=== PATIENT | female | born 1945 | race Caucasian/White ===

== ENCOUNTER 2023-04-11 12:35 | Emergency (ER) | payer OTHER, MEDICARE ==
[2023-04-11] MEDS ORDERED: ONDANSETRON 4 MG/2 ML VIAL ONE (13:09)
[2023-04-11] MEDS ORDERED: MORPHINE 2 MG/ML SYR ONE (13:09)
[2023-04-11] MEDS ORDERED: NA CHLORIDE 0.9% 1,000 ML ONE (13:09)
[2023-04-11] MEDS ORDERED: NA CHLORIDE 0.9% 500 ML ONE (13:10)
[2023-04-11 13:12] LABS: Absolute Lymphocytes (CBC) 0.6 K/uL (0.7-4.9); Hematocrit 39.9 % (36.0-45.0); Lymphocytes % 10.9 % (15.3-44.8); MCV 94.2 fL (80-100); MPV 12.5 fL (7.6-11.3); RBC Red Blood Cell Count 4.23 M/uL (3.86-4.86)
[2023-04-11 13:26] LABS: Bilirubin Total 0.8 mg/dL (0.2-1.0); Potassium 4.5 mEq/L (3.5-5.1); Protein, Total 6.7 g/dL (6.4-8.2)
[2023-04-11 13:54] LABS: Blood Morphology Comment NOT SEEN (NOT SEEN); Platelet Estimate ADEQ; White Blood Cell Scan OK (OK)
--- NOTE | 2023-04-11 14:13 | RAD REPORT ---
EXAM DESCRIPTION: CT - Abdomen Pelvis Wo Contrast - 04/11/2023 1:54 pm CLINICAL HISTORY: Abdominal pain. hX OF BOWEL OBSTRUCTION;Abd pain COMPARISON: <Comparisons> TECHNIQUE: CT imaging of the abdomen and pelvis was performed without contrast. Solid organ, bowel a nd vascular assessment is limited due to lack of IV and oral contrast. All CT scans are performed using dose optimization technique as appropriate and may include automated exposure control or mA/KV adjustment according to patient size. FINDINGS: Fibrotic changes are present in the lung bases. The liver, spleen, pancreas, adrenal glands and kidneys are within normal limits for a limited non-co ntrast examination. Postsurgical changes are present involving the stomach and small intestine. Focally dilated small bow el loops filled with liquid stool measure up to 4 cm. The cecum and colon also significantly filled w ith stool. Bowel obstruction is not seen. No free air. Nonvisualized appendix. Moderate lumbar degenerative changes. IMPRESSION: Solid and liquid stool retention is seen in the small bowel and colon without definitive bowel obstruction. A limited non-contrast examination was performed as detailed.
--- NOTE | 2023-04-11 14:43 | EDPHYS ---
Physician Documentation [facility] Name: Angie Daniel Age: 77 yrs Sex: Female : 1945 Arrival Date: 04/11/2023 Time: 12:35 Bed 17 Private MD: Tiki James ED Physician Rick Ball HPI: 04/11 15:24 This 77 yrs old Female presents to ER via Ambulatory with complaints of Abdominal Pain. kdr 15:24 Patient began to have abdominal pain about 3 days ago. She feels that she may be having kdr recurrence of a prior bowel obstruction. She was seen here at the beginning of February for similar pain. She was subsequently admitted with a small bowel obstruction. She did not require further intervention beyond the normal hydration and bowel rest. She subsequently was discharged in good condition has been fine until the last 3 days. She denies any other significant associated findings or complaints or review of systems. Onset: The symptoms/episode began/occurred gradually, 3 day(s) ago. Severity of symptoms: At their worst the symptoms were mild. The patient has experienced a previous episode, last month. The patient has been recently seen by a physician:. Historical: - Allergies: 12:47 Codeine; ll1 12:47 PENICILLINS; ll1 12:47 tramadol; ll1 - PMHx: 12:47 Hypercholesterolemia; atrial flutter; Hypertensive disorder; Hypothyroidism; ll1 - PSHx: 12:47 Gastric Bypass; Cholecystectomy; hernia; upper bowel obstruction; ll1 - Immunization history:: Client reports receiving the 2nd dose of the Covid vaccine. - Social history:: Smoking status: Patient denies any tobacco usage or history of. ROS: 15:24 Constitutional: Negative for fever, chills, and weight loss, Eyes: Negative for injury, kdr pain, redness, and discharge, ENT: Negative for injury, pain, and discharge, Neck: Negative for injury, pain, and swelling, Cardiovascular: Negative for chest pain, palpitations, and edema, Respiratory: Negative for shortness of breath, cough, wheezing, and pleuritic chest pain, Back: Negative for injury and pain, : Negative for injury, bleeding, discharge, and swelling, MS/Extremity: Negative for injury and deformity, Skin: Negative for injury, rash, and discoloration, Neuro: Negative for headache, weakness, numbness, tingling, and seizure activity. Psych: Negative for depression, anxiety, suicide ideation, homicidal ideation, and hallucinations, Allergy/Immunology: Negative for hives, rash, and allergies, Endocrine: Negative for neck swelling, polydipsia, polyuria, polyphagia, and marked weight changes, Hematologic/Lymphatic: Negative for swollen nodes, abnormal bleeding, and unusual bruising. 15:24 Abdomen/GI: Positive for abdominal pain, nausea, Last bowel movement was 1030 today. She had 2 bowel movements yesterday. She continues to have occasional flatus per rectum. Exam: 15:24 Constitutional: This is a well developed, well nourished patient who is awake, alert, kdr and in no acute distress. Head/Face: Normocephalic, atraumatic. Eyes: Pupils equal round and reactive to light, extra-ocular motions intact. Lids and lashes normal. Conjunctiva and sclera are non-icteric and not injected. Cornea within normal limits. Periorbital areas with no swelling, redness, or edema. Neck: Trachea midline, no thyromegaly or masses palpated, and no cervical lymphadenopathy. Supple, full range of motion without nuchal rigidity, or vertebral point tenderness. No Meningismus. Chest/axilla: Normal chest wall appearance and motion. Nontender with no deformity. No lesions are appreciated. Cardiovascular: Regular rate and rhythm with a normal S1 and S2. No gallops, murmurs, or rubs. Normal PMI, no JVD. No pulse deficits. Respiratory: Lungs have equal breath sounds bilaterally, clear to auscultation and percussion. No rales, rhonchi or wheezes noted. No increased work of breathing, no retractions or nasal flaring. Back: No spinal tenderness. No costovertebral tenderness. Full range of motion. Skin: Warm, dry with normal turgor. Normal color with no rashes, no lesions, and no evidence of cellulitis. MS/ Extremity: Pulses equal, no cyanosis. Neurovascular intact. Full, normal range of motion. Neuro: Awake and alert, GCS 15, oriented to person, place, time, and situation. Cranial nerves II-XII grossly intact. Motor strength 5/5 in all extremities. Sensory grossly intact. Cerebellar exam normal. Normal gait. Psych: Awake, alert, with orientation to person, place and time. Behavior, mood, and affect are within normal limits. 15:24 Abdomen/GI: Inspection: obese Bowel sounds: diminished, in all quadrants, Palpation: soft, mild abdominal tenderness, in the umbilical area, right lower quadrant and left lower quadrant. Vital Signs: 12:48 Weight 57.15 kg; Height 4 ft. 8 in. ; Pain 8/10; ll1 12:51 Pulse 64; Resp 16; Temp 98.5; Pulse Ox 90% ; aw1 13:05 BP 125 / 51; aw1 13:10 BP 91 / 52; Pulse 61; Resp 16; Pulse Ox 85% on R/A; ko1 13:16 Pulse Ox 94% on 2 lpm NC; ko1 14:47 BP 99 / 42; Pulse 66; Resp 18; Pulse Ox 92% on R/A; ko1 12:48 Body Mass Index 28.25 (57.15 kg, 142.24 cm) ll1 12:48 Pain Scale: Adult ll1 MDM: 14:41 Patient medically screened. kdr 15:24 Data reviewed: vital signs, nurses notes, lab test result(s), radiologic studies. kdr 04/11 12:55 Order name: CBC with Diff; Complete Time: 13:57 kdr 04/11 12:55 Order name: CMP; Complete Time: 13:29 kdr 04/11 12:55 Order name: Lipase; Complete Time: 13:29 kdr 04/11 13:18 Order name: CBC Smear Scan; Complete Time: 13:57 EDMS 04/11 13:48 Order name: Abdomen ; Complete Time: 14:27 EDMS 04/11 12:55 Order name: IV Saline Lock; Complete Time: 12:58 kdr 04/11 12:55 Order name: Labs collected and sent; Complete Time: 12:58 kdr Administered Medications: 12:55 CANCELLED (Duplicate Order): NS 0.9% IV 1000 ml IV at 1 bolus Per protocol; 1000 mL kdr bolus 12:55 CANCELLED (Duplicate Order): morphine IVP or IV 4 mg IVP once over 4 mins kdr 13:10 Drug: NS 0.9% IV 500 ml Route: IV; Rate: bolus; Site: right forearm; ko1 14:27 Follow up: Response: No adverse reaction; IV Status: Completed infusion; IV Intake: ll1 500ml 13:20 Drug: Ondansetron IVP 4 mg Route: IVP; Site: right forearm; ko1 13:21 Drug: morphine IVP or IV 2 mg Route: IVP; Infused Over: 4 mins; Site: right forearm; ko1 14:24 Drug: NS 0.9% IV 1000 ml Route: IV; Rate: 75 ml/hr; Site: right forearm; ko1 Disposition Summary: 04/11/23 14:41 Discharge Ordered Location: Home kdr Problem: an acute exacerbation kdr Symptoms: have improved kdr Condition: Stable kdr Diagnosis - Lower abdominal pain, unspecified kdr - Stool Retension kdr Followup: kdr - With: Tiki James, DO - When: 2 - 3 days - Reason: If symptoms return, Further diagnostic work-up, Recheck today's complaints, Continuance of care, Re-evaluation by your physician Discharge Instructions: - Discharge Summary Sheet kdr - Constipation, Adult, [id number] kdr - Abdominal Pain, Adult, [id number] kdr Forms: - Medication Reconciliation Form kdr - Thank You Letter kdr Prescriptions: - Zofran 4 mg Oral Tablet - take 1 tablet by ORAL route every 4-6 hours As needed; 12 tablet; Refills: 0, kdr Product Selection Permitted Signatures: Dispatcher [employer] EDMS Rick Ball MD MD kdr Alia Duenas RN RN ll1 Lola Thompson, JUANITA RN ko1 Corrections: (The following items were deleted from the chart) 12:55 12:55 NS 0.9% IV 1000 ml IV at 1 bolus Per protocol; 1000 mL bolus ordered. kdr kdr 12:55 12:55 morphine IVP or IV 4 mg IVP once over 4 mins ordered. kdr kdr 13:48 12:55 Abdomen Pelvis W Con+CT.RAD.BRZ ordered. EDMS EDMS
--- NOTE | 2023-04-11 14:43 | ER ---
Nurse's Notes [facility] Name: Angie Daniel Age: 77 yrs Sex: Female : 1945 Arrival Date: 04/11/2023 Time: 12:35 Bed 17 Private MD: Tiki James Diagnosis: Lower abdominal pain, unspecified;Stool Retension Presentation: 04/11 12:48 Chief complaint: Patient states: "I think I have another small bowel obstruction". ll1 Abdominal pain for 3 days. No fever. Coronavirus screen: Vaccine status: Patient reports receiving the 2nd dose of the covid vaccine. Client denies travel out of the [place] in the last 14 days. At this time, the client does not indicate any symptoms associated with coronavirus-19. Ebola Screen: Patient denies travel to an Ebola-affected area in the 21 days before illness onset. Initial Sepsis Screen: Does the patient meet any 2 criteria? No. Patient's initial sepsis screen is negative. Does the patient have a suspected source of infection? Yes: Acute abdominal pain. Risk Assessment: Do you want to hurt yourself or someone else? Patient reports no desire to harm self or others. Onset of symptoms was April 09, 2023. 12:48 Method Of Arrival: Ambulatory ll1 12:48 Acuity: BLAINE 3 ll1 Triage Assessment: 12:49 General: Appears uncomfortable, Behavior is calm, cooperative, appropriate for age. ll1 Pain: Complains of pain in abdomen Pain currently is 8 out of 10 on a pain scale. Quality of pain is described as aching, pressure. GI: Reports lower abdominal pain, upper abdominal pain, bloating. : Reports cannot control urine output Denies burning with urination. Historical: - Allergies: 12:47 Codeine; ll1 12:47 PENICILLINS; ll1 12:47 tramadol; ll1 - PMHx: 12:47 Hypercholesterolemia; atrial flutter; Hypertensive disorder; Hypothyroidism; ll1 - PSHx: 12:47 Gastric Bypass; Cholecystectomy; hernia; upper bowel obstruction; ll1 - Immunization history:: Client reports receiving the 2nd dose of the Covid vaccine. - Social history:: Smoking status: Patient denies any tobacco usage or history of. Screenin:16 [facility] ED Fall Risk Assessment (Adult) History of falling in the last 3 months, ko1 including since admission No falls in past 3 months (0 pts) Confusion or Disorientation No (0 pts) Intoxicated or Sedated No (0 pts) Impaired Gait Yes (1 pt) Mobility Assist Device Used Yes (1 pt) Altered Elimination No (0 pt) Score/Fall Risk Level 0 - 2 = Low Risk Oriented to surroundings, Maintained a safe environment, Educated pt \\T\\ family on fall prevention, incl call for assistance when getting out of bed, Assessed \\T\\ reinforced patient's understanding of fall precautions, Provided non-skid footwear, Hourly rounding (assess needs \\T\\ fall precautionary measures) done, Used ambulatory aids as needed (educated on \\T\\ assisted with), Used gait belt as appropriate. Abuse screen: Denies threats or abuse. Denies injuries from another. Nutritional screening: No deficits noted. Tuberculosis screening: No symptoms or risk factors identified. Assessment: 12:45 General: Appears in no apparent distress. comfortable, Behavior is calm, cooperative, ko1 appropriate for age. Pain: Complains of pain in abdomen. Neuro: No deficits noted. Cardiovascular: No deficits noted. Respiratory: No deficits noted. GI: Bowel sounds present X 4 quads. Abd is soft X 4 quads. : No deficits noted. EENT: No deficits noted. Derm: No deficits noted. Musculoskeletal: No deficits noted. 14:25 Reassessment: No changes from previously documented assessment. Patient and/or family ll1 updated on plan of care and expected duration. Pain level reassessed. Vital Signs: 12:48 Weight 57.15 kg; Height 4 ft. 8 in. ; Pain 8/10; ll1 12:51 Pulse 64; Resp 16; Temp 98.5; Pulse Ox 90% ; aw1 13:05 BP 125 / 51; aw1 13:10 BP 91 / 52; Pulse 61; Resp 16; Pulse Ox 85% on R/A; ko1 13:16 Pulse Ox 94% on 2 lpm NC; ko1 14:47 BP 99 / 42; Pulse 66; Resp 18; Pulse Ox 92% on R/A; ko1 12:48 Body Mass Index 28.25 (57.15 kg, 142.24 cm) ll1 12:48 Pain Scale: Adult ll1 ED Course: 12:39 Patient arrived in ED. mr 12:39 Tiki James DO is Private Physician. mr 12:40 Rick Ball MD is Attending Physician. kdr 12:47 Arm band placed on Patient placed in an exam room, on a stretcher. ll1 12:49 Triage completed. ll1 12:53 Lola Thompson, RN is Primary Nurse. ko1 12:55 Inserted saline lock: 22 gauge in right forearm, using aseptic technique. Blood ko1 collected. 12:58 CBC with Diff Sent. ko1 12:58 CMP Sent. ko1 12:58 Lipase Sent. ko1 13:16 Patient has correct armband on for positive identification. Bed in low position. Call ko1 light in reach. Side rails up X2. Client placed on continuous cardiac and pulse oximetry monitoring. NIBP monitoring applied. case monitor on. Door closed. Noise minimized. Warm blanket given. 13:16 Oxygen administration via nasal cannula \\T\\ 2L/min. ko1 13:21 CBC Smear Scan Sent. ko1 13:56 Abdomen In Process Unspecified. EDMS 14:41 Tiki James DO is Referral Physician. kdr 14:47 No provider procedures requiring assistance completed. IV discontinued, intact, ko1 bleeding controlled, No redness/swelling at site. Pressure dressing applied. Administered Medications: 12:55 CANCELLED (Duplicate Order): NS 0.9% IV 1000 ml IV at 1 bolus Per protocol; 1000 mL kdr bolus 12:55 CANCELLED (Duplicate Order): morphine IVP or IV 4 mg IVP once over 4 mins kdr 13:10 Drug: NS 0.9% IV 500 ml Route: IV; Rate: bolus; Site: right forearm; ko1 14:27 Follow up: Response: No adverse reaction; IV Status: Completed infusion; IV Intake: ll1 500ml 13:20 Drug: Ondansetron IVP 4 mg Route: IVP; Site: right forearm; ko1 13:21 Drug: morphine IVP or IV 2 mg Route: IVP; Infused Over: 4 mins; Site: right forearm; ko1 14:24 Drug: NS 0.9% IV 1000 ml Route: IV; Rate: 75 ml/hr; Site: right forearm; ko1 Medication: 13:16 VIS not applicable for this client. ko1 Intake: 14:27 IV: 500ml; Total: 500ml. ll1 Outcome: 14:41 Discharge ordered by . kdr 14:47 Discharged to home ambulatory, with family. ko1 14:47 Condition: improved 14:47 Discharge instructions given to patient, family, Instructed on discharge instructions, follow up and referral plans. medication usage, Demonstrated understanding of instructions, follow-up care, medications, Prescriptions given X 1. 14:58 Patient left the ED. ko1 Signatures: Dispatcher [employer] EDMS Rick Ball MD MD kdr Rivera, Yadira mr Alia Duenas RN RN ll1 Lola Thompson RN RN ko1 Lu Mccollum aw1
[2023-04-11 15:05] VITALS: TEMP 98.5
[2023-04-11 15:12] VITALS: BP 99/42; O2SAT 92
== END 2023-04-11 14:58 | disposition home or self-care (01) ==
LOC: ER 12:35
DX: K59.00 Constipation, unspecified (principal); I10 Essential (primary) hypertension; Z98.84 Bariatric surgery status; Z88.0 Allergy status to penicillin; Z88.5 Allergy status to narcotic agent
CPT/HCPCS: 96361; 85025; 36415; 83690; 80053; 74176; 96375; 96374; 99285; J2270; J2405; J7040; J7030

== ENCOUNTER 2023-06-07 21:20 | Inpatient (IN) | payer OTHER, MEDICARE ==
[2023-06-07] MEDS ORDERED: NA CHLORIDE 0.9% 500 ML ONE (21:51)
[2023-06-07 22:44] LABS: Absolute Lymphocytes (CBC) 0.5 K/uL (0.7-4.9); Hematocrit 38.1 % (36.0-45.0); Lymphocytes % 10.6 % (15.3-44.8); MCV 96.7 fL (80-100); MPV 12.2 fL (7.6-11.3); Platelets 94 thou/uL (152-406); RBC Red Blood Cell Count 3.93 M/uL (3.86-4.86)
[2023-06-07 23:02] LABS: Albumin 2.9 g/dL (3.4-5.0); Bilirubin Total 0.6 mg/dL (0.2-1.0); Potassium 4.1 mEq/L (3.5-5.1); Protein, Total 5.5 g/dL (6.4-8.2); Troponin High Sensitivity 11.6 pg/mL (<58.9)
--- NOTE | 2023-06-08 00:40 | ER ---
Nurse's Notes [facility] Name: Angie Daniel Age: 77 yrs Sex: Female : 1945 Arrival Date: 06/07/2023 Time: 21:20 Bed 4 Private MD: Diagnosis: Low Grade Small Bowel Obstruction;Left upper quadrant abdominal pain;Nausea and vomiting Presentation: 06/07 21:28 Chief complaint: Patient states: abdominal pain of 10 with vomiting x 4 episodes in the pf1 past 24 hours,onset last night. Patient stated last BM was 1 hour ago. 21:28 Coronavirus screen: Vaccine status: Patient reports receiving the 2nd dose of the covid pf1 vaccine. Moderna Client denies travel out of the [place] in the last 14 days. At this time, the client does not indicate any symptoms associated with coronavirus-19. Ebola Screen: Patient negative for fever greater than or equal to 101.5 degrees Fahrenheit, and additional compatible Ebola Virus Disease symptoms. Initial Sepsis Screen: Does the patient meet any 2 criteria? No. Patient's initial sepsis screen is negative. Does the patient have a suspected source of infection? No. Patient's initial sepsis screen is negative. 21:28 Method Of Arrival: Wheelchair pf1 22:40 Risk Assessment: Do you want to hurt yourself or someone else? Patient reports no as6 desire to harm self or others. Onset of symptoms was June 06, 2023. 22:40 Acuity: BLAINE 3 as6 Historical: - Allergies: 22:17 Codeine; pf1 22:17 PENICILLINS; pf1 22:17 tramadol; pf1 - PMHx: 22:17 atrial flutter; Hypercholesterolemia; Hypertensive disorder; Hypothyroidism; SBO; pf1 - PSHx: 22:17 Gastric Bypass; hernia; upper bowel obstruction; Cholecystectomy; pf1 - Immunization history:: Adult Immunizations up to date, Client reports receiving the 2nd dose of the Covid vaccine, Last tetanus immunization: > 10 years ago Flu vaccine is up to date. - Social history:: Smoking status: Patient denies any tobacco usage or history of. Patient/guardian denies using alcohol, street drugs. Screenin:39 [facility] ED Fall Risk Assessment (Adult) Score/Fall Risk Level 0 - 2 = Low Risk. Abuse as6 screen: Denies threats or abuse. Denies injuries from another. Nutritional screening: No deficits noted. Tuberculosis screening: No symptoms or risk factors identified. Assessment: 21:45 General: Appears in no apparent distress. Behavior is calm, cooperative. Pain: as6 Complains of pain in abdomen. Neuro: Level of Consciousness is awake, alert, obeys commands, Oriented to person, place, time, situation. Cardiovascular: Capillary refill < 3 seconds Patient's skin is warm and dry. Respiratory: Respiratory effort is even, unlabored, Respiratory pattern is regular, symmetrical. GI: Abdomen is round Reports lower abdominal pain, upper abdominal pain, nausea, vomiting. 23:00 Reassessment: Patient appears in no apparent distress at this time. Patient and/or jb4 family updated on plan of care and expected duration. Pain level reassessed. Patient is alert, oriented x 3, equal unlabored respirations, skin warm/dry/pink. 23:43 Reassessment: Patient appears in no apparent distress at this time. Patient and/or jb4 family updated on plan of care and expected duration. Pain level reassessed. Patient is alert, oriented x 3, equal unlabored respirations, skin warm/dry/pink. 06/08 01:00 Reassessment: Patient appears in no apparent distress at this time. Patient and/or jb4 family updated on plan of care and expected duration. Pain level reassessed. Patient is alert, oriented x 3, equal unlabored respirations, skin warm/dry/pink. Vital Signs: 06/07 21:28 BP 132 / 69; Pulse 64; Resp 18; Temp 98.2; Pulse Ox 98% on R/A; Weight 57.15 kg; Height pf1 4 ft. 8 in. ; Pain 10/10; 22:40 BP 136 / 48; Pulse 56; Resp 18 S; Pulse Ox 98% on R/A; as6 23:43 BP 127 / 49; Pulse 63; Resp 16; Pulse Ox 94% on R/A; jb4 21:28 Body Mass Index 28.25 (57.15 kg, 142.24 cm) pf1 21:28 Pain Scale: Adult pf1 ED Course: 21:21 Patient arrived in ED. jj6 21:29 Kandi Morton MD is Attending Physician. sd2 21:40 Ciro Chavarria, JUANITA is Primary Nurse. as6 21:57 Inserted saline lock: 22 gauge in left antecubital area, using aseptic technique. as6 22:39 Arm band placed on. as6 22:39 Bed in low position. Call light in reach. Side rails up X2. as6 22:40 Triage completed. as6 23:23 CT Abd/Pelvis - IV Contrast Only In Process Unspecified. EDMS 06/08 00:38 Favio Carrasco MD is Hospitalizing Provider. sd2 01:44 No provider procedures requiring assistance completed. Patient admitted, IV remains in as6 place. 01:44 Provided Education on: need for admit. as6 Administered Medications: 06/07 21:57 Drug: NS 0.9% IV 500 ml Route: IV; Rate: bolus; Site: left antecubital; as6 06/08 01:44 Follow up: Response: No adverse reaction; IV Status: Completed infusion; IV Intake: as6 500ml Medication: 06/07 22:39 VIS not applicable for this client. as6 Intake: 06/08 01:44 IV: 500ml; Total: 500ml. as6 Outcome: 00:39 Decision to Hospitalize by Provider. sd2 01:44 Admitted to Med/surg accompanied by tech, via wheelchair, room 213, with chart, Report as6 called to Joyce GRANT 01:44 Condition: stable 01:44 Instructed on the need for admit. 02:00 Patient left the ED. as6 Signatures: Dispatcher [employer] EDCA Gregory Hernández, RN RN jb4 Darcie Schwarzj6 Ciro Chavarria RN RN as6 Kandi Morton MD MD sd2 Korin Cox, RN RN pf1
--- NOTE | 2023-06-08 00:40 | EDPHYS ---
Physician Documentation [facility] Name: Angie Daniel Age: 77 yrs Sex: Female : 1945 Arrival Date: 06/07/2023 Time: 21:20 Bed 4 Private MD: ED Physician Kandi Morton HPI: 06/07 21:40 This 77 yrs old Female presents to ER via Unassigned with complaints of sd2 Nausea/Vomiting, Abdominal Pain, C/O POSSIBLE SBO. 21:40 77 yo F presents with CC of abdominal pain since last night with associated nausea and sd2 vomiting x3. States BMs x3 today as well. Reports hx of SBO in the past with the last one in February and last abdominal surgery in October. Has had gastric bypass and umbilical hernia repair with mesh in the past. Denies fever, chest pain or other symptoms at this time. Declines pain medication. . Historical: - Allergies: 22:17 Codeine; pf1 22:17 PENICILLINS; pf1 22:17 tramadol; pf1 - PMHx: 22:17 atrial flutter; Hypercholesterolemia; Hypertensive disorder; Hypothyroidism; SBO; pf1 - PSHx: 22:17 Gastric Bypass; hernia; upper bowel obstruction; Cholecystectomy; pf1 - Immunization history:: Adult Immunizations up to date, Client reports receiving the 2nd dose of the Covid vaccine, Last tetanus immunization: > 10 years ago Flu vaccine is up to date. - Social history:: Smoking status: Patient denies any tobacco usage or history of. Patient/guardian denies using alcohol, street drugs. ROS: 21:40 Constitutional: Negative for fever, chills, and weight loss, Eyes: Negative for injury, sd2 pain, redness, and discharge, Cardiovascular: Negative for chest pain, palpitations, and edema, Respiratory: Negative for shortness of breath, cough, wheezing. 21:40 : Negative for dysuria, urinary frequency, hesitancy, urgency and hematuria. MS/Extremity: Negative for injury and deformity, Skin: Negative for injury, rash, and discoloration, Neuro: Negative for headache, numbness and tingling. 21:40 Abdomen/GI: Positive for abdominal pain, nausea and vomiting, Negative for diarrhea. Exam: 21:40 Constitutional: This is a well developed, well nourished patient who is awake, alert, sd2 and in no acute distress. Head/Face: Normocephalic, atraumatic. Eyes: EOMI, normal conjunctiva bilaterally Chest/axilla: Normal chest wall appearance and motion. Nontender with no deformity. Cardiovascular: Regular rate and rhythm with a normal S1 and S2. No gallops, murmurs, or rubs. 2+ distal pulses. Respiratory: Lungs have equal breath sounds bilaterally, clear to auscultation and percussion. No rales, rhonchi or wheezes noted. No increased work of breathing, no retractions or nasal flaring. Abdomen/GI: Soft, ND, TTP most prominent in the LUQ with no rebound tenderness or guarding Skin: Warm, dry with normal turgor. Normal color with no rashes, no lesions, and no evidence of cellulitis. MS/ Extremity: Pulses equal, no cyanosis. Neurovascular intact. Full, normal range of motion. Psych: Awake, alert, with orientation to person, place and time. Behavior, mood, and affect are within normal limits. 21:54 ECG was reviewed by the Attending Physician. Sinus bradycardia, rate 59, no STEMI sd2 criteria Vital Signs: 21:28 BP 132 / 69; Pulse 64; Resp 18; Temp 98.2; Pulse Ox 98% on R/A; Weight 57.15 kg; Height pf1 4 ft. 8 in. ; Pain 10/10; 22:40 BP 136 / 48; Pulse 56; Resp 18 S; Pulse Ox 98% on R/A; as6 23:43 BP 127 / 49; Pulse 63; Resp 16; Pulse Ox 94% on R/A; jb4 21:28 Body Mass Index 28.25 (57.15 kg, 142.24 cm) pf1 21:28 Pain Scale: Adult pf1 MDM: 21:29 Patient medically screened. sd2 21:40 Differential diagnosis: Gastritis, cholecystitis, pancreatitis, SBO, diverticulitis, sd2 kidney stone, appendicitis, UTI, dehydration, electrolyte abnormality among others. Data reviewed: vital signs, nurses notes, lab test result(s), EKG, radiologic studies. I considered the following discharge prescriptions or medication management in the emergency department. 06/08 00:37 Consideration of Admission/Observation Patient was admitted/placed on observation. sd2 Historians other than the Patient: Family Member: Sister at gives further information and history. Care significantly affected by the following chronic conditions: Hypertension. Counseling: I had a detailed discussion with the patient and/or guardian regarding the historical points, exam findings, and any diagnostic results supporting the discharge/admit diagnosis, lab results, radiology results, the need for further work-up and treatment in the hospital. ED course: CT reviewed by myself with evidence of low grade SBO with no clear transition point. Will plan to admit for further management at this time. Pt in agreement with treatment plan.. 01:18 Discussion of test interpretation with radiology: I had a discussion with radiology sd2 regarding a test interpretation. Discussed findings with radiologist: partial SBO vs. partial ileus, enteritis also a possibility. 06/07 21:39 Order name: CBC with Diff; Complete Time: 00:41 2 06/07 21:39 Order name: CMP; Complete Time: 00:41 sd2 06/07 21:39 Order name: Lipase; Complete Time: 00:41 sd2 06/07 21:39 Order name: Troponin High Sensitivity; Complete Time: 00:41 sd2 06/07 21:39 Order name: Urinalysis w/ reflexes sd2 06/07 21:39 Order name: CT Abd/Pelvis - IV Contrast Only sd2 06/07 21:39 Order name: EKG - Nurse/Tech; Complete Time: 21:52 sd2 Administered Medications: 06/07 21:57 Drug: NS 0.9% IV 500 ml Route: IV; Rate: bolus; Site: left antecubital; as6 06/08 01:44 Follow up: Response: No adverse reaction; IV Status: Completed infusion; IV Intake: as6 500ml Disposition Summary: 06/08/23 00:39 Hospitalization Ordered Hospitalization Status: Observation sd2 Provider: Favio Carrasco2 Location: Telemetry/MedSurg (observation) sd2 Condition: Stable sd2 Problem: new sd2 Symptoms: are unchanged sd2 Bed/Room Type: [facility] Room Assignment: 213(06/08/23 01:33) cg Diagnosis - Low Grade Small Bowel Obstruction sd2 - Left upper quadrant abdominal pain sd2 - Nausea and vomiting sd2 Forms: - Medication Reconciliation Form sd2 - SBAR form sd2 - Leadership Thank You Letter sd2 Signatures: Dispatcher [employer] EDMS Attema, Pablo, CLINICAL TRAINING SPECIALIST-C CLINICAL TRAINING SPECIALIST-Cla1 Kira Enrique, RN RN cg Ciro Chavarria RN RN as6 Kandi Morton MD MD sd2 Korin Cox RN RN pf1 Corrections: (The following items were deleted from the chart) 01:33 00:39 sd2 cg
--- NOTE | 2023-06-08 01:14 | P.HP ---
Certification for Inpatient Patient admitted to: Inpatient With expected LOS: >2 Midnights Patient will require the following post-hospital care: None Practitioner: I am a practitioner with admitting privileges, knowledge of patient current condition, hospital course, and medical plan of care. Services: Services provided to patient in accordance with Admission requirements found in Title 42 Section 412.3 of the Code of Federal Regulations <Pablo Benitez - Last Filed: 06/08/23 01:11> Patient History Date of Service: 06/08/23 Reason for admission: SBO History of Present Illness: 77-year-old female with history of atrial flutter after receiving anesthesia on chronic anticoagulation with Eliquis, hypertension, hyperlipidemia, hypothyroidism presents emerged department with chief complaint of abdominal pain, vomiting. She reports pain for about a day now had 4 episodes of vomiting today also had a couple of solid bowel movements throughout the day today, was having generalized abdominal pain and presented to the emergency department. She feels as if her symptoms are similar to previous small bowel obstructions. She had a gastric bypass about 30 years ago, had a hernia repair "a long time ago" with mesh. In September 2022 she was hospitalized at [facility] for approximate 1 month when she had a bowel obstruction requiring surgery, she has since had 1 additional bowel obstruction in January of this year which did not require surgical intervention. She was evaluated in the emergency department her labs were significant for creatinine 1.22 GFR 45 B[address] with IV contrast was performed which revealed low-grade small bowel obstruction involving the proximal two thirds of small bowel versus enteritis versus mild ileus. Distal ileal loops are normal in caliber. A definite transition point is not identified. Trace ascites. Prior gastric surgery. Prior small bowel surgery within the right mid abdomen. This area of anastomosis is fluid-filled and distended as seen on multiple prior exams. Pain has improved abdomen is nondistended at this time patient has not vomited since she got into the emergency department she will need to be admitted for suspected partial small bowel obstruction. - Past Medical/Surgical History -: Hypertension -: COPD -: Atrial flutter -: History of CVA -: Hypothyroidism -: Anxiety disorder -: Gastric bypass surgery Psychosocial/ Personal History: Patient is at home with family - Family History Mother -: Heart disease Father -: Heart disease - Social History Smoking Status: Never smoker Alcohol use: No Place of Residence: Home <Pablo Benitez - Last Filed: 06/08/23 01:11> Date of Service: 06/08/23 <Favio Carrasco - Last Filed: 06/08/23 15:34> Allergies codeine Allergy (Verified 01/25/23 17:36) Hives/Rash Penicillins Allergy (Verified 01/25/23 17:36) Hives/Rash tramadol Adverse Reaction (Verified 06/08/23 02:16) hallucinations Home Medications: Albuterol Sulfate [Proair Respiclick] 2 puff IH Q4H PRN 06/08/23 Albuterol Sulfate [Proair Respiclick] 2 puff IH Q6H PRN 06/08/23 Amiodarone HCl [Cordarone*] 200 mg PO DAILY 06/08/23 Amlodipine [Norvasc*] 5 mg PO DAILY 06/08/23 Apixaban [Eliquis] 5 mg PO DAILY 06/08/23 Atorvastatin Calcium [Lipitor] 40 mg PO DAILY 06/08/23 Bumetanide [Bumex*] 0.5 mg PO DAILY 06/08/23 Cetirizine HCl 10 mg PO DAILY 06/08/23 Docusate Sodium 200 mg PO DAILY 06/08/23 Fluticasone/Umeclidin/Vilanter [Trelegy Ellipta 100-62.5-25] 1 puff IH DAILY 06/08/23 Levothyroxine [Synthroid] 75 mcg PO [id number] 06/08/23 Losartan Potassium 100 mg PO DAILY 06/08/23 Meloxicam [Mobic*] 7.5 mg PO DAILY 06/08/23 Metoprolol Succinate 50 mg PO BEDTIME 06/08/23 Montelukast [Singulair*] 10 mg PO BEDTIME 06/08/23 Pantoprazole [Protonix Tab*] 40 mg PO DAILY 06/08/23 Sertraline [Zoloft*] 50 mg PO DAILY 06/08/23 Review of Systems 10-point ROS is otherwise unremarkable Gastrointestinal: Nausea, Vomiting, Abdominal Pain <Pablo Benitez - Last Filed: 06/08/23 01:11> Physical Examination - Physical Exam General: Alert, In no apparent distress, Oriented x3, Obese HEENT: Atraumatic, PERRLA, Mucous membr. moist/pink, EOMI, Sclerae nonicteric Neck: Supple, 2+ carotid pulse no bruit, No LAD, Without JVD or thyroid abnormality Respiratory: Clear to auscultation bilaterally, Normal air movement Cardiovascular: Regular rate/rhythm, Normal S1 S2 Capillary refill: <2 Seconds Gastrointestinal: Hypoactive, Tenderness (Mild generalized abdominal tenderness) Musculoskeletal: No tenderness Integumentary: No rashes Neurological: Normal speech, Normal strength at 5/5 x4 extr, Normal tone, Normal affect - Studies Laboratory Data (last 24 hrs) 06/07/23 06/07/23 22:30 22:30 WBC 4.70 Hgb 12.7 Hct 38.1 Plt Count 94 L Sodium 142 Potassium 4.1 BUN 27 H Creatinine 1.22 H Glucose 103 Total Bilirubin 0.6 AST 27 ALT 31 Alkaline Phosphatase 98 Lipase 16 <Pablo Benitez - Last Filed: 06/08/23 01:11> - Studies Laboratory Data (last 24 hrs) 06/07/23 06/07/23 22:30 22:30 WBC 4.70 Hgb 12.7 Hct 38.1 Plt Count 94 L Sodium 142 Potassium 4.1 BUN 27 H Creatinine 1.22 H Glucose 103 Total Bilirubin 0.6 AST 27 ALT 31 Alkaline Phosphatase 98 Lipase 16 <Favio Carrasco - Last Filed: 06/08/23 15:34> Assessment and Plan - Plan Assessment: Partial SBO versus ileus History of atrial flutter on chronic anticoagulation Hypertension Hyperlipidemia Hypothyroidism Plan: Partial SBO versus ileus N.p.o., IVF, IV antibiotics, general surgery consultation. Symptoms have improved currently without abdominal distention, severe pain or vomiting, will hold off on NG tube at this time. KUB in the morning. History of atrial flutter on chronic anticoagulation Reports she had an episode of atrial flutter after anesthesia, she has been on Eliquis 2.5 mg twice daily and amiodarone since then, she reports that to her knowledge she has not been in atrial fibrillation or flutter since then. She was asking about discontinuation of anticoagulation with substitute Plavix as she had a previous CVA. She was informed that she should follow-up with her PCP and cardiology outpatient to determine her need for anticoagulation. Hypertension Hyperlipidemia Hypothyroidism Hold oral medications, restart when appropriate. DVT PPX: SCD Code status: Full Discharge Plan: Home Plan to discharge in: 48 Hours - Advance Directives Does patient have a Living Will: No Does patient have a Durable POA for Healthcare: No - Code Status/Comfort Care Code Status Assessed: Yes (Full code) Critical Care: No Time Spent Managing Pts Care (In Minutes): 55 <Pablo Benitez - Last Filed: 06/08/23 01:11> - Plan Patient seen and examined on rounds this morning Reports some slight improvement No BM/flatus since admission Reports tenderness in the upper abdomen remains, no nausea/vomiting KUB ordered for this morning Follow-up with general surgery after imaging for further recommendations Possible ice chips/sips this evening <Favio Carrasco - Last Filed: 06/08/23 15:34>
[2023-06-08 02:04] LABS: Urine Bacteria None Seen /HPF (<20); Urine Bilirubin NEGATIVE (Negative); Urine Blood Negative (Negative); Urine Clarity Clear (Clear); Urine Color Light-Yellow (Yellow); Urine Glucose NEGATIVE (Negative); Urine Mucus Slight /HPF (None Seen); Urine Protein NEGATIVE (Negative); Urine RBC <5 /HPF (None Seen); Urine Urobilinogen Normal (Normal)
[2023-06-08 02:06] LABS: Specific Gravity > 1.030 (1.005-1.030)
[2023-06-08] MEDS ORDERED: ONDANSETRON 4 MG/2 ML VIAL IV PRN (02:09)
[2023-06-08] MEDS ORDERED: MORPHINE 2 MG/ML SYR IV PRN (02:09)
[2023-06-08 02:46] VITALS: O2SAT 94
[2023-06-08 02:51] VITALS: BMI 28.2
[2023-06-08 03:13] LABS: Absolute Lymphocytes (CBC) 0.6 K/uL (0.7-4.9); Hematocrit 38.1 % (36.0-45.0); Lymphocytes % 16.8 % (15.3-44.8); MCV 97.4 fL (80-100); MPV 12.8 fL (7.6-11.3); Platelets 100 thou/uL (152-406); RBC Red Blood Cell Count 3.91 M/uL (3.86-4.86)
[2023-06-08] MEDS: METRONIDAZOLE 500mg IVPB 500 MG/100 ML BAG IV SCH ×3 (03:19→17:12)
[2023-06-08] MEDS: D5.45NS W/KCL 20MEQ 1,000 ML IV SCH ×2 (03:22→17:14)
[2023-06-08 03:28] LABS: Potassium 4.1 mEq/L (3.5-5.1)
[2023-06-08 04:17] LABS: Blood Morphology Comment NOT SEEN (NOT SEEN); Platelet Estimate DECR; White Blood Cell Scan OK (OK)
--- NOTE | 2023-06-08 06:54 | P.PN ---
Date of Service: 06/08/23 Subjective: saturday 06/09 note ROS: 10 point ROS as noted above, otherwise negative Physical Exam: GEN: Alert, oriented, NAD HEENT: Normal conjunctiva, sclera anicteric CV: Regular rate and rhythm, no edema Pulm: Nonlabored respirations on room air ABD: Soft, Mild generalized abdominal tenderness, nondistended MSK: No joint tenderness Integumentary: No rashes Neuro: Normal speech, normal affect vitals reviewed Problem List: Partial SBO versus ileus History of atrial flutter on chronic anticoagulation Hypertension Hyperlipidemia Hypothyroidism Prior Gastric Bypass (~30-35 years ago) Partial SBO versus ileus CT abdomen (06/08): KUB (06/08): Nonobstructive bowel gas pattern. General surgery - Dr. James consulted cont IVF while NPO continue empiric cipro / flagyl (06/08-) hold off on NGT given improvement History of atrial flutter on chronic anticoagulation Reports she had an episode of atrial flutter after anesthesia, she has been on Eliquis 2.5 mg twice daily and amiodarone since then, she reports that to her knowledge she has not been in atrial fibrillation or flutter since then. She was asking about discontinuation of anticoagulation with substitute Plavix as she had a previous CVA. f/u outpatient with cardio / PCP Hypertension Hyperlipidemia Hypothyroidism Hold oral medications, restart when appropriate. VTE: SCD Code: Full Dispo: Home
--- NOTE | 2023-06-08 08:59 | RAD REPORT ---
EXAM DESCRIPTION: RAD - Abdomen 1 View (KUB) - 06/08/2023 6:49 am CLINICAL HISTORY: eval sbo COMPARISON: Abdomen 1 View (KUB) dated 01/28/2023; Abdomen Pelvis W Contrast dated 06/07/2023 TECHNIQUE: Single AP view of the abdomen. FINDINGS: Nonobstructive bowel gas pattern. No air-fluid levels, free air, or pneumatosis. No suspic ious calcifications. No significant bony abnormality. Excreted contrast in the bladder. Ventral hernia mesh tacks present . Sequelae of prior vertebral augmentation at T12. IMPRESSION: Nonobstructive bowel gas pattern.
[2023-06-08] MEDS: CIPROFLOXACIN 400mg IV 400 MG/200 ML BAG IV SCH ×2 (10:21→20:51)
--- NOTE | 2023-06-08 10:21 | RAD REPORT ---
EXAM DESCRIPTION: CT - Abdomen Pelvis W Contrast - 06/08/2023 6:14 am ADDENDUM #1 These findings were communicated to Dr Kandi Morton on 06/08/2023 12:40 AM (PLACEMENT DIRECTOR). Electronically signed by: Cm Fay MD 06/08/2023 12:50 AM CDT End of Addendum EXAM DESCRIPTION: Abdomen Pelvis W Contrast CLINICAL HISTORY: 77 years Female, ABD PAIN, VOMITING TECHNIQUE: Helical CT axial images are obtained from the lung bases to the pubic symphysis with IV c ontrast. No oral contrast was administered. Multiplanar reconstruction. This exam was performed accor ding to our departmental dose-optimization program, which includes automated exposure control, adjust ment of the mA and/or kV according to patient size and/or use of iterative reconstruction technique. COMPARISON: 04/11/2023, 01/25/2023 FINDINGS: LUNG BASES: No basilar consolidation or effusions. LIVER: Normal in size. Normal attenuation. No focal masses. HEPATOBILIARY: Status post cholecystectomy. No intra- or extrahepatic ductal dilatation. SPLEEN: Normal size. PANCREAS: Fatty replacement of the pancreas. No focal or acute abnormality. ADRENAL GLANDS: Normal size. No adrenal masses. KIDNEYS: Bilateral kidneys are normal in size without obstructing calculi or hydronephrosis. No nep hrolithiasis. A few simple bilateral renal cysts, no further workup is warranted. No focal solid mass . BOWEL AND MESENTERY: Prior gastric surgery. Prior small bowel surgery within the right mid abdomen. T his area of anastomosis is fluid-filled and distended. There is diffuse enhancement of the small prakash l loops. Fluid-filled mildly dilated proximal two thirds of small bowel. A definite transition point is not identified. Distal ileal loops are normal in caliber but also demonstrate wall enhancement. No large bowel dilatation. No significant colonic diverticulosis. The appendix is not identified. No abnormal mesenteric lymphadenopathy. Trace ascites. No pneumoperitoneum. RETROPERITONEUM: Normal caliber abdominal aorta without aneurysm. Moderate ASVD. No abnormal retrop eritoneal lymphadenopathy. PELVIS: Urinary bladder is unremarkable. Uterus and adnexal regions are unremarkable. ABDOMINAL WALL: Prior abdominal hernia repair. BONES: Multiple old thoracolumbar vertebral body compression fractures. Prior vertebroplasty L1. No suspicious osseous lytic or blastic lesions seen. IMPRESSION: 1. Low-grade small bowel obstruction involving the proximal two thirds of small bowel versus enteritis versus mild ileus.. Distal ileal loops are normal in caliber. A definite transition point is not identified. 2. Trace ascites. 3. Prior gastric surgery. Prior small bowel surgery within the right mid abdomen. This area of anas tomosis is fluid-filled and distended as seen on multiple prior exams. 4. Status post cholecystectomy. 5. Multiple old thoracolumbar vertebral body compression fractures. Prior vertebroplasty L1. Electronically signed by: Cm Fay MD 06/08/2023 12:19 AM CDT Due to temporary technical issues with the PACS/Fluency reporting system, reports are being signed by the in house radiologists without review as a courtesy to insure prompt reporting. The interpreting radiologist is fully responsible for the content of the report.
--- NOTE | 2023-06-08 12:11 | CON ---
Date of Consultation: 06/08/2023 Reason For Consultation: Small bowel obstruction. History Of Present Illness: The patient is a 77-year-old female, comes in with 2-day history of abdo ellen pain associated with nausea and vomiting. Vomiting was last night. The patient had multiple b owel movements yesterday, has not had any today and this morning has not passed gas, but was passing gas last night. She has had multiple surgeries on her abdomen for gastric bypass followed by another small bowel resection surgery done last September. The gastric bypass surgery was done approximately 30 years ago. She currently is awake and alert. No acute distress. She denies any sore throat, ru nny nose, cough, headaches, dizziness, chest pain, fever or chills. The patient has a similar episod e of obstruction a few months back, which resolved with conservative treatment. Review of Systems: Otherwise unremarkable. Past Medical History: Significant for A flatter, AFib, the patient is not anticoagulated for that. Hypertension, COPD, hypothyroidism, anxiety. Past Surgical History: Gastric bypass surgery, small bowel resection, cholecystectomy. Allergies: INCLUDE CODEINE AND PENICILLIN. Social History: The patient does not smoke or drink. Family History: Significant for heart disease. Physical Examination: Vital Signs: Her vital signs are stable right now. She is afebrile. Her T-max was 99.5 last night. General: She is awake, alert, and oriented x3. Head and Neck: No masses. Chest: Clear. Heart: S1, S2. Abdomen: Soft. Positive bowel sounds. Minimal tenderness. No rebound, rigidity, or guarding. No peritonitis. No abdominal wall hernia appreciated. Extremity: Adequately perfused. Nontender. Neuro: Nonfocal. Diagnostic Studies: The patient had a CT of the abdomen and pelvis done last night, which showed low -grade small bowel obstruction, rule out proximal 2/3 of small bowel versus enteritis versus mild ile us. Distal ileal loops are normal in caliber. A transition point is not seen. Trace ascites, multi ple thoracolumbar vertebral compression fractures, prior vertebroplasty L1, prior gastric surgery, pr ior small bowel surgery within the right mid abdomen. Area of anastomosis is fluid filled and disten ded seen on multiple prior exams. Abdominal x-ray done this morning shows nonobstructive bowel gas p attern. Laboratory Data: Reviewed. White count is 3.8 and there is no left shift this morning. Platelets w ere over 100. Chemistry reviewed BUN and creatinine are slightly elevated, otherwise unremarkable. Assessment: Likely ileus versus enteritis, could be early small bowel obstruction. Recommendations: Continue current management, sips of clear liquids as her radiographic profile is i mproved and advance as tolerated. Empiric antibiotics. Serial abdominal exam. There is no need for any surgical intervention at this time. Following discharge, the patient should follow up with [facility]. She may have a stricture that can be evaluated as an outpatient; however, clinically she appears to be slowly improving. /MODL Voice ID: [id number] Report ID: [id number]
[2023-06-09] MEDS: METRONIDAZOLE 500mg IVPB 500 MG/100 ML BAG IV SCH ×2 (00:33→09:10)
[2023-06-09 03:20] LABS: Hematocrit 35.9 % (36.0-45.0); Lymphocytes % 26.6 % (15.3-44.8); MCV 97.3 fL (80-100); MPV 13.7 fL (7.6-11.3); Platelets 81 thou/uL (152-406); RBC Red Blood Cell Count 3.69 M/uL (3.86-4.86)
[2023-06-09 03:36] LABS: Potassium 3.8 mEq/L (3.5-5.1)
[2023-06-09] MEDS: D5.45NS W/KCL 20MEQ 1,000 ML IV SCH ×2 (04:49→09:13)
[2023-06-09 06:37] LABS: Urine Bilirubin NEGATIVE (Negative); Urine Blood Negative (Negative); Urine Clarity Clear (Clear); Urine Color Light-Yellow (Yellow); Urine Glucose NEGATIVE (Negative); Urine Protein NEGATIVE (Negative); Urine Urobilinogen Normal (Normal)
[2023-06-09] MEDS ORDERED: POTASSIUM CL SA 10 MEQ TAB PO ONE (09:00)
[2023-06-09] MEDS: CIPROFLOXACIN 400mg IV 400 MG/200 ML BAG IV SCH (09:10)
--- NOTE | 2023-06-09 09:26 | RAD REPORT ---
EXAM DESCRIPTION: RAD - Abdomen 1 View (KUB) - 06/09/2023 9:13 am CLINICAL HISTORY: eval sbo COMPARISON: Abdomen 1 View (KUB) dated 06/08/2023; Abdomen 1 View (KUB) dated 01/28/2023; Abdomen Pe lvis W Contrast dated 06/07/2023; Abdomen Pelvis W Contrast dated 01/25/2023 FINDINGS/IMPRESSION: Nonspecific mild diffuse small bowel distention and dilatation. This could refl ect an ileus or distal small bowel obstruction. The findings are little changed. Vertebroplasty changes. Prior hernia repair. Surgical clips in the left upper quadrant
[2023-06-09 09:59] VITALS: BP 137/49; TEMP 97.7
--- NOTE | 2023-06-09 13:24 | PN ---
Date of Progress Note: 06/09/2023 Subjective: Patient is awake, alert, no complaint. She is having bowel movements, passing gas. Had no pain. Objective: Vital Signs: Stable, afebrile. Abdomen: Soft, nondistended, nontender. Positive bowel sounds. Imaging: Abdominal x-ray reviewed. No significant change since yesterday. Assessment: Partial small bowel obstruction, ileus, or enteritis, improving. Recommendations: We will advance her diet to GI soft as tolerated. Patient is cleared for discharge from surgery standpoint. Patient needs to follow up with the Bariatric Surgery for further evaluati on and an outpatient workup of the partial obstruction the patient is getting on a more frequent basi s. There may be a stricture at the anastomosis. /MODL Voice ID: [id number] Report ID: [id number]
--- NOTE | 2023-06-09 14:44 | P.DS ---
Admission Date: 06/08/23 Discharge Date: 06/09/23 Disposition: ROUTINE DISCHARGE Discharge Condition: GOOD Reason for Admission: SBO Consultations: General Surgery - Dr. James Brief History of Present Illness: 77yo F, PMH: atrial flutter after receiving anesthesia on chronic anticoagulation with Eliquis, hypertension, hyperlipidemia, hypothyroidism presents emerged department with chief complaint of abdominal pain, vomiting. She reports pain for about a day now had 4 episodes of vomiting today also had a couple of solid bowel movements throughout the day today, was having generalized abdominal pain and presented to the emergency department. She feels as if her symptoms are similar to previous small bowel obstructions. She had a gastric bypass about 30 years ago, had a hernia repair "a long time ago" with mesh. In September 2022 she was hospitalized at hospital [facility] for approximate 1 month when she had a bowel obstruction requiring surgery, she has since had 1 additional bowel obstruction in January of this year which did not require surgical intervention. She was evaluated in the emergency department her labs were significant for creatinine 1.22 GFR 45 B[address] with IV contrast was performed which revealed low-grade small bowel obstruction involving the proximal two thirds of small bowel versus enteritis versus mild ileus. Distal ileal loops are normal in caliber. A definite transition point is not identified. Trace ascites. Prior gastric surgery. Prior small bowel surgery within the right mid abdomen. This area of anastomosis is fluid-filled and distended as seen on multiple prior exams. Pain has improved abdomen is nondistended at this time patient has not vomited since she got into the emergency department she will need to be admitted for suspected partial small bowel obstruction. Hospital Course: Problem List: Partial SBO History of atrial flutter on chronic anticoagulation Hypertension Hyperlipidemia Hypothyroidism Prior Gastric Bypass (~30-35 years ago) Patient presented with abdominal pain with nausea/vomiting. She was found to have a partial small bowel obstruction. CT noted some dilatation near anastomotic site, which has been previously see on prior CT scans. There is concern for a possible stricture at the anastomotic site. General Surgery was consulted. Patient had improvement of her symptoms with bowel rest, time and IV fluids. No evidence to warrant surgical intervention during this hospitalization. Diet was slowly advanced as tolerated. On day of discharge patient was feeling better, tolerating soft foods, and deemed stable for discharge home. Recommend to follow up with bariatric surgery for further evaluation / workup of partial small bowel obstruction as patient has been getting them more frequently. Advised patient to eat smaller more frequent meals, chew food very well, in attempt to avoid further complications. Resume home medications as previously prescribed. Follow up: PCP 3-5 days Bariatric Surgery 1-2 weeks Physical Exam: GEN: Alert, oriented, NAD HEENT: Normal conjunctiva, sclera anicteric CV: Regular rate and rhythm, no edema Pulm: Nonlabored respirations on room air ABD: Soft, minimal upper abdominal discomfort on deep palpation, nondistended Neuro: Normal speech, normal affect Vital Signs/Physical Exam: Temp Pulse Resp BP Pulse Ox 97.7 F 90 16 137/49 L 93 06/09/23 08:00 06/09/23 08:00 06/09/23 08:00 06/09/23 08:00 06/09/23 08:00 Laboratory Data at Discharge: WBC 3.60 thou/uL (4.3-10.9) L 06/09/23 02:00 Hgb 11.7 g/dL (12.0-15.0) L 06/09/23 02:00 Hct 35.9 % (36.0-45.0) L 06/09/23 02:00 Plt Count 81 thou/uL (152-406) L 06/09/23 02:00 Sodium 142 mEq/L (136-145) 06/09/23 02:00 Potassium 3.8 mEq/L (3.5-5.1) 06/09/23 02:00 BUN 15 mg/dL (7-18) 06/09/23 02:00 Creatinine 0.87 mg/dL (0.55-1.02) 06/09/23 02:00 Glucose 94 mg/dL (74-106) 06/09/23 02:00 Total Bilirubin 0.6 mg/dL (0.2-1.0) 06/07/23 22:30 AST 27 U/L (15-37) 06/07/23 22:30 ALT 31 U/L (13-56) 06/07/23 22:30 Alkaline Phosphatase 98 U/L (45-117) 06/07/23 22:30 Lipase 16 U/L (13-75) 06/07/23 22:30 Home Medications: Albuterol Sulfate [Proair Respiclick] 2 puff IH Q4H PRN 06/08/23 Albuterol Sulfate [Proair Respiclick] 2 puff IH Q6H PRN 06/08/23 Amiodarone HCl [Cordarone*] 200 mg PO DAILY 06/08/23 Amlodipine [Norvasc*] 5 mg PO DAILY 06/08/23 Apixaban [Eliquis] 5 mg PO DAILY 06/08/23 Atorvastatin Calcium [Lipitor] 40 mg PO DAILY 06/08/23 Bumetanide [Bumex*] 0.5 mg PO DAILY 06/08/23 Cetirizine HCl 10 mg PO DAILY 06/08/23 Docusate Sodium 200 mg PO DAILY 06/08/23 Fluticasone/Umeclidin/Vilanter [Trelegy Ellipta 100-62.5-25] 1 puff IH DAILY 06/08/23 Levothyroxine [Synthroid*] 75 mcg PO [id number] 06/08/23 Losartan Potassium 100 mg PO DAILY 06/08/23 Meloxicam [Mobic*] 7.5 mg PO DAILY 06/08/23 Metoprolol Succinate 50 mg PO BEDTIME 06/08/23 Montelukast [Singulair*] 10 mg PO BEDTIME 06/08/23 Pantoprazole [Protonix Tab*] 40 mg PO DAILY 06/08/23 Sertraline [Zoloft*] 50 mg PO DAILY 06/08/23 Physician Discharge Instructions: Patient presented with abdominal pain with nausea/vomiting. She was found to have a partial small bowel obstruction. CT noted some dilatation near anastomotic site, which has been previously see on prior CT scans. There is concern for a possible stricture at the anastomotic site. General Surgery was consulted. Patient had improvement of her symptoms with bowel rest, time and IV fluids. No evidence to warrant surgical intervention during this hospitalization. Diet was slowly advanced as tolerated. On day of discharge patient was feeling better, tolerating soft foods, and deemed stable for discharge home. Recommend to follow up with bariatric surgery for further evaluation / workup of partial small bowel obstruction as patient has been getting them more frequently. Advised patient to eat smaller more frequent meals, chew food very well, in attempt to avoid further complications. Resume home medications as previously prescribed. Follow up: PCP 3-5 days Bariatric Surgery 1-2 weeks Followup: Jacob,Joe, MD [Primary Care Provider] - Time spent managing pt's care (in minutes): 45
--- NOTE | 2023-06-10 18:05 | EKG ---
Test Date: 2023-06-07 Test Time: 21:50:37 Statistics Intern: TAMMIE MEASUREMENT RESULTS: Intervals: Rate: 59 MT: 196 QRSD: 72 QT: 452 QTc: 447 Zahl: P: 54 MT: 196 QRS: 12 T: 93 INTERPRETIVE STATEMENTS: Sinus bradycardia Low voltage QRS Borderline ECG No previous ECG available for comparison Electronically Signed On 06-10-23 17:58:57 CDT by Matheus Valdez
== END 2023-06-09 16:40 | disposition home or self-care (01) | DRG 389 ==
LOC: ER 21:20 → 2ND 06-08 00:55
PROVIDERS: ADMIT Hospitalist; ATTEND Hospitalist
DX: K56.600 Partial intestinal obstruction, unspecified as to cause (principal); I48.92 Unspecified atrial flutter; I10 Essential (primary) hypertension; E03.9 Hypothyroidism, unspecified; E78.00 Pure hypercholesterolemia, unspecified; J44.9 Chronic obstructive pulmonary disease, unspecified; Z88.0 Allergy status to penicillin; Z88.5 Allergy status to narcotic agent; Z90.49 Acquired absence of other specified parts of digestive tract; Z98.84 Bariatric surgery status; Z86.73 Personal history of transient ischemic attack (TIA), and cerebral infarction without residual deficits; Z79.01 Long term (current) use of anticoagulants; Z79.890 Hormone replacement therapy; Z79.899 Other long term (current) drug therapy
CPT/HCPCS: 36415; 74018; 74177; 80048; 80053; 81001; 81003; 83690; 84484; 85025; 93005; 96360; 96361; 99285; J0744; J2270; J7040; Q9967

== ENCOUNTER 2023-08-12 12:47 | Emergency (ER) | payer OTHER, MEDICARE ==
--- OUTSIDE RECORDS SUMMARY | 2023-08-12 12:50 | XMS REPORT | Continuity of Care Document ---
:1945 Author Organization [facility] t Address [address] [facility] [address] [place] [address] Care Team Providers Name Role Phone PCP, PATIENT DOES NOT HAVE A Primary Care Physician Unavaila WESTON Soares Attending Clinician Unavailable MARISSA BOSWELL Attending Clinician Unavailable Marissa Boswell PA-C Attending Clinician Unknown, Attending Attending Clinician Unavailable Payers Payer Name Policy Type Policy Number Effective Date Expiration Date S reggie MEDICARE A B [id number] 2009 00:00:00 [facility] [id number] 2022 HEALTHCARE 00:00:00 MEDICARE PART A \T\ [id number] 2009 B 00:00:00 [facility] [id number] 2022 MEDICARE SUPPLEMENT 00:00:00 Problems This patient has no known problems. Allergies, Adverse Reactions, Alerts Allergy Allergy Status Severity Reaction(s) Onset Inactive Treating Comm ents Source Name Type Date Date Clinician PENICILL Allergy Active 2022-[address] [facility] [place] [facility]: [address] Tramadol Drug Active Other - See 2021-10 hallucina Univers Intolera comments 2-20 tions ity of nce 00:00: [address] TRAMADOL DRUG Active Med Hallucinates 2021-10 Un odette INGREDI 2-20 ity of 00:00: [address] TRAMADOL Allergy Active Med Other 2021-[address] [facility] [facility] Codeine Drug Active Rash 2015-10 CODEINE Univers Allergy 0-01 PHOSPHATE ity of 00:00: : - [place] 00 Converted Medical from Branch Centricit y Penicill Drug Active Rash 2015-10 NATURAL Univers ins Allergy 0-01 PENICILLI ity of 00:00: NS: - [place] 00 Converted Medical from Branch Centricit y CODEINE DRUG Active Low ITCHING 2015-10 Univers INGREDI 0-01 ity of 00:00: [place] 00 Medical Branch PENICILL Drug Active Low Rash 2015-10 Univers INS Class 0-01 ity of 00:00: [place] 00 Medical Branch CODEINE Allergy Active Low Itching 2015-[address] [facility] [facility] Medical 00 Center NO KNOWN Drug Active Univers ALLERGIE Class ity of S [facility] Social History Social Habit Start Date Stop Date Quantity Comments Source Sexual orientation [facility] Sex Assigned At [birth year] [facility] Medical Branch Smoking Status Start Date Stop Date Source Tobacco smoking consumption [facility] Branch Medications Ordered Filled Start Stop Current Ordering Indication Dosage Frequency Signature Comments Components Source Medication Medication Date Date Medication? Clinician (SIG) Name Name albuterol Yes USE 3 ML Univ ers 2.5 mg /3 9-21 VIA ity of mL (0.083 20:27: NEBULIZER Juan as %) 14 EVERY 6 Medical nebulizer HOURS Branch solution NEEDED cetirizine Yes 10mg Take 1 Unive rs 10 mg 9-21 tablet by ity of tablet 20:27: mouth in [place] 14 the Medical morning. Branch docusate Yes Take 1 Univers (COLACE) 9-21 capsule ity of 100 mg 20:27: every day [place] capsule 14 by oral Medical route. Branch fluticasone Yes 1{puff} Inhale 1 Univers propionate 9-21 Puff. ity of 220 20:27: [place] mcg/actuati 14 Medical on inhaler [place] fluticasone Yes INHALE 1 Un odette -umeclidin- 9-21 PUFF INTO ity of vilanter 20:27: THE LUNGS [place] 100-62.5-25 14 EVERY DAY Med ical mcg DsDv Branch levothyroxi Yes Univer s ne 75 mcg 9-21 ity of tablet 20:27: [place] [address] Medical Branch losartan 50 0 Yes 100mg Take 2 Uni vers mg tablet 9-21 tablets by ity of 20:27: mouth. [place] [address] Medical Branch SERTraline 0 Yes 50mg Take 1 Unive rs 50 mg 9-21 tablet by ity of tablet 20:27: mouth in [place] [address] the Medical morning. Branch verapamiL 0 Yes 240mg Take 1 Unive rs 240 mg ER 9-21 tablet by ity o f tablet 20:27: mouth. [address] Branch molnupiravi Yes [id number] 800mg Take 4 Univers r 200 mg 9-21 capsules ity of capsule 00:00: by mouth [place] 00 every 12 Medical (twelve) Branch hours. atorvastati Yes 40mg Take 1 Univ ers n 40 mg 9-07 tablet by ity of tablet 00:00: mouth in [place] 00 the Medical morning. Branch meloxicam Yes TAKE 1 Univer s 7.5 mg 9-07 TABLET BY ity of tablet 00:00: MOUTH [place] 00 EVERY DAY Medical WITH FOOD Branch NEEDED amiodarone Yes 200mg Take 1 Univ ers 200 mg 9- tablet by ity of tablet 00:00: mouth [place] 00 every Medical morning. Branch metoprolol Yes 50mg Take 1 Unive rs succinate 9- tablet by ity o f XL 50 mg 24 00:00: mouth [place] hr tablet 00 every Medical morning. Branch pantoprazol Yes 40mg Take 1 Univ ers e 40 mg EC 9- tablet by ity of tablet 00:00: mouth in [place] 00 the Medical morning. Branch montelukast Yes TAKE 1 Univ ers 10 mg 9-01 TABLET BY ity of tablet 00:00: MOUTH 1 [place] 00 TIME AT Medical NIGHT Branch latanoprost Yes INSTILL 1 U nivers 0.005 % 8-29 DROP IN ity of ophthalmic 00:00: BOTH EYES [place] drops 00 EVERY Medical NIGHT AT Branch BEDTIME WIXELA Yes INHALE 1 Univers INHUB 7-20 PUFF BY ity of 250-50 00:00: MOUTH [place] mcg/dose 00 TWICE Medical inhalation DAILY Branch disk bumetanide Yes .5mg Take 1 Unive rs 0.5 mg 7-18 tablet by ity of tablet 00:00: mouth in [place] 00 the Medical morning. Branch apixaban Yes Take 1 Univers 2.5 mg 2-22 tablet ity of tablet 00:00: twice a 00 day by Medical oral Branch route. amLODIPine Yes 5mg Take 1 Unive rs 5 mg tablet 2-22 tablet by ity of 00:00: mouth. [place] 00 Medical Branch traMADoL 50 2021-10- No 50mg Take 1 Uni vers mg tablet 2-15 - tablet by ity of 00:00: 00:00 mouth. [place] 00 :00 Medical Branch ipratropium 2021-10 Yes 3mL Inhale 3 Un odette -albuteroL 0-27 mL. ity of 0.5 mg-3 00:00: [place] mg(2.5 mg 00 Medical base)/3 mL Branch nebulizer solution Vital Signs Vital Name Observation Time Observation Value Comments Source HEIGHT 2023-07-25 11:59:00 149.9 cm WEIGHT 2023-07-25 11:59:00 56.246 kg Systolic blood 2023-07-12 01:19:00 163 mm[Hg] Univer sity of pressure [facility] Diastolic blood 2023-07-12 01:19:00 66 mm[Hg] Unive rsity of pressure [facility] Heart rate 2023-07-12 01:19:00 74 /min [facility] Body temperature 2023-07-12 01:19:00 38.22 Mer [facility] Respiratory rate 2023-07-12 01:19:00 22 /min [facility] Body height 2023-07-12 01:19:00 142.2 cm [facility] Body weight 2023-07-12 01:19:00 55.339 kg [facility] BMI 2023-07-12 01:19:00 27.35 kg/m2 [facility] Oxygen saturation in 2023-07-12 01:19:00 93 /min [facility] Arterial blood by [facility] Pulse oximetry Branch Procedures Procedure Date / Time Performed Performing Clinician Johnna e POCT SARS-COV-2 2023-07-12 01:30:00 Emely Lucio f [place] ANTIGEN (BINAX NOW) Medical Bran ch Encounters Start End Encounter Admission Attending Care Care Encounter Source Date/Time Date/Time Type Type Clinicians Facility Department ID 2023-07-25 2023-07-25 Outpatient [facility] [id number] 11:33:30 12:55:47 [facility] 2023-07-24 2023-07-24 Outpatient [facility] [id number] 00:00:00 00:00:00 [facility] 2023-07-11 2023-07-11 Outpatient R JHOANA [facility] [id number] Univers 20:20:00 20:45:37 MARISSA mar [facility] 2023-07-11 2023-07-11 Urgent Marissa Boswell [facility] [id number] Univers 20:20:00 20:45:37 Care Unknown, [facility]ending [id number] Juan as BUTCH?BLEA [id number] [address] MEDICAL OFFICE BUILDING Results Test Description Test Time Test Comments Results Result Comments Source POCT SARS-COV-2 ANTIGEN (BINAX NOW) 2023-07-12 01:30:00 Test Item Value Reference Range Interpretation Comme nts POCT SARS-COV-2 ANTIGEN (test code = 35641-1) Positive Not Dete cted A On board controls acceptable with C Line (test code = 3574) Yes Lab Interpretation (test code = 45481-8) Abnormal [facility]
--- NOTE | 2023-08-12 14:07 | RAD REPORT ---
EXAM DESCRIPTION: CT - Head C Spine Mpr Wo Con - 08/12/2023 1:43 pm CLINICAL HISTORY: Head and neck injury status post fall. Head and neck pain COMPARISON: None. TECHNIQUE: Computed axial tomography of the head and cervical spine was obtained. Sagittal and coronal reconstruction was performed. All CT scans are performed using dose optimization technique as appropriate and may include automated exposure control or mA/KV adjustment according to patient size. FINDINGS: An intracranial bleed is not seen. The ventricles are normal in caliber. Mild to moderate low-density areas within periventricular, deep and subcortical white matter likely i schemic changes secondary small vessel disease. An extra-axial fluid collection is not noted. Fluid within the visualized sinuses and mastoids is not seen A cervical fracture is not visualized. No dislocation is noted. Spondylosis cervical spine Mildly displaced fracture medial right clavicle IMPRESSION: No acute intracranial abnormality is seen. A cervical fracture is not visualized. If the patient continues to have symptoms to suggest intracranial /spinal cord pathology then MRI wou ld be recommended Mildly displaced fracture medial right clavicle
--- NOTE | 2023-08-12 14:10 | RAD REPORT ---
EXAM DESCRIPTION: RAD - Shoulder Right 2 View - 08/12/2023 1:42 pm CLINICAL HISTORY: Right shoulder pain FINDINGS: Osteoporosis 4.5 centimeter calcific density proximal right humerus probably either an infarct or enchondroma. It is recommended that the patient have a followup x-ray in 3 months to assess stability Mildly displaced medial right clavicular fracture described on the CT same date not clearly seen on t his exam No fracture or dislocation visualized Artifact overlies the right shoulder
--- NOTE | 2023-08-12 14:19 | RAD REPORT ---
EXAM DESCRIPTION: Karley Single View08/12/2023 1:42 pm CLINICAL HISTORY: Chest pain COMPARISON: none FINDINGS: The lungs appear clear of acute infiltrate. The heart is normal size IMPRESSION: No acute abnormalities displayed
--- NOTE | 2023-08-12 14:20 | RAD REPORT ---
EXAM DESCRIPTION: RADSacrum And Irbboz0708/12/2023 1:42 pm CLINICAL HISTORY: Back pain status post fall FINDINGS: Osteoporosis Chronic compression deformities lumbar spine No fracture seen involving the sacrum/coccyx
--- NOTE | 2023-08-12 14:24 | ER ---
Nurse's Notes [facility] Name: Angie Daniel Age: 77 yrs Sex: Female : 1945 Arrival Date: 08/12/2023 Time: 12:47 Bed 9 Private MD: Diagnosis: Displaced fracture of shaft of right clavicle Presentation: 08/12 13:05 Chief complaint: Patient states: fall last night at 2200. Pt states that she tripped on cm10 the dog. Pt reports hitting her head, no LOC. Pt on blood thinners (Eliquis). Pt complaining of right shoulder pain and pain to her buttocks. Coronavirus screen: Vaccine status: Patient reports being unvaccinated. Client denies travel out of the [place] in the last 14 days. Ebola Screen: Patient denies travel to an Ebola-affected area in the 21 days before illness onset. No symptoms or risks identified at this time. Initial Sepsis Screen: Does the patient meet any 2 criteria? No. Patient's initial sepsis screen is negative. Does the patient have a suspected source of infection? No. Patient's initial sepsis screen is negative. Risk Assessment: Do you want to hurt yourself or someone else? Patient reports no desire to harm self or others. Onset of symptoms was August 12, 2023. 13:05 Method Of Arrival: Ambulatory cm10 13:05 Acuity: BLAINE 3 cm10 Triage Assessment: 13:08 General: Appears in no apparent distress. comfortable, Behavior is calm, cooperative. cm10 Neuro: No deficits noted. Level of Consciousness is awake, alert, obeys commands, Oriented to person, place, time, situation. Respiratory: No deficits noted. Airway is patent Respiratory effort is even, unlabored, Respiratory pattern is regular, symmetrical. Historical: - Allergies: 13:07 Codeine; cm10 13:07 PENICILLINS; cm10 13:07 tramadol; cm10 - PMHx: 13:07 atrial flutter; Hypercholesterolemia; Hypertensive disorder; Hypothyroidism; SBO; cm10 Cerebrovascular accident; - PSHx: 13:07 Cholecystectomy; Gastric Bypass; hernia; upper bowel obstruction; cm10 - Immunization history:: Adult Immunizations unknown. - Social history:: Smoking status: Patient/guardian denies using tobacco. Screenin:00 [facility] ED Fall Risk Assessment (Adult) Score/Fall Risk Level 0 - 2 = Low Risk hb Oriented to surroundings, Maintained a safe environment, Educated pt \T\ family on fall prevention, incl call for assistance when getting out of bed. Abuse screen: Denies threats or abuse. Denies injuries from another. Nutritional screening: No deficits noted. Tuberculosis screening: No symptoms or risk factors identified. Assessment: 14:22 Reassessment: Patient appears in no apparent distress at this time. Patient and/or hb family updated on plan of care and expected duration. Pain level reassessed. Patient is alert, oriented x 3, equal unlabored respirations, skin warm/dry/pink. Vital Signs: 13:05 BP 174 / 57; Pulse 53; Resp 18 S; Temp 96.8(TE); Pulse Ox 97% on R/A; Weight 54.43 kg cm10 (R); Height 4 ft. 6 in. (R); Pain 0/10; 14:21 BP 156 / 82; Pulse 59; Resp 15; Pulse Ox 98% ; hb 13:05 Body Mass Index 28.93 (54.43 kg, 137.16 cm) cm10 13:05 Pain Scale: Adult cm10 ED Course: 12:50 Patient arrived in ED. mg5 12:52 Darcie Mccullough FNP [facility]. jh7 12:52 Blue Lucero MD is Attending Physician. jh7 13:07 Triage completed. cm10 13:08 Arm band placed on Patient placed in an exam room, on a stretcher. cm10 13:42 CT Head C Spine In Process Unspecified. EDMS 13:44 XRAY Chest (1 view) In Process Unspecified. EDMS 13:44 XRAY Shoulder RIGHT 2 view In Process Unspecified. EDMS 13:44 XRAY Sacrum And Coccyx In Process Unspecified. EDMS 13:45 Faby Luke, RN is Primary Nurse. hb 13:45 Patient has correct armband on for positive identification. Provided Education on: hb tests, wait times. 14:23 Jose Castañeda MD is Referral Physician. jh7 14:44 No provider procedures requiring assistance completed. Patient did not have IV access ap3 during this emergency room visit. Administered Medications: No medications were administered Medication: 14:22 VIS not applicable for this client. hb Outcome: 14:23 Discharge ordered by . jh7 14:44 Discharged to home via wheelchair, with family, ap3 14:44 Condition: stable 14:44 Discharge instructions given to patient, family, Instructed on discharge instructions, follow up and referral plans. medication usage, Demonstrated understanding of instructions, follow-up care, medications, 14:44 Patient left the ED. ap3 Signatures: Dispatcher [employer] EDFaby Pierre RN RN Doreen Murillo RN RN ap3 Darcie Mccullough, CHUTE LOADER CHUTE LOADER Maura Nur RN RN 10 Shantel Valenzuela 5
--- NOTE | 2023-08-12 14:24 | EDPHYS ---
Physician Documentation [facility] Name: Angie Daniel Age: 77 yrs Sex: Female : 1945 Arrival Date: 08/12/2023 Time: 12:47 Bed 9 Private MD: ED Physician Blue Lucero HPI: 08/12 13:07 This 77 yrs old Female presents to ER via Ambulatory with complaints of Fall Injury. jh7 13:07 Details of fall: The patient fell from an upright position, while standing. Onset: The jh7 symptoms/episode began/occurred last night. Associated injuries: The patient sustained right shoulder, decreased range of motion, ecchymosis. 16:35 Patient reports that she tripped over her dog last night and injured her right shoulder jh7 and tailbone. States that she hit her head and denies head pain, but does take Eliquis. Denies LOC.. Historical: - Allergies: 13:07 Codeine; cm10 13:07 PENICILLINS; cm10 13:07 tramadol; cm10 - PMHx: 13:07 atrial flutter; Hypercholesterolemia; Hypertensive disorder; Hypothyroidism; SBO; cm10 Cerebrovascular accident; - PSHx: 13:07 Cholecystectomy; Gastric Bypass; hernia; upper bowel obstruction; cm10 - Immunization history:: Adult Immunizations unknown. - Social history:: Smoking status: Patient/guardian denies using tobacco. ROS: 16:35 Constitutional: Negative for fever, chills, and weight loss, Eyes: Negative for injury, jh7 pain, redness, and discharge, Neck: Negative for injury, pain, and swelling, Cardiovascular: Negative for chest pain, palpitations, and edema, Respiratory: Negative for shortness of breath, cough, wheezing, and pleuritic chest pain, Abdomen/GI: Negative for abdominal pain, nausea, vomiting, diarrhea, and constipation, MS/Extremity: Negative for injury and deformity, Skin: Negative for injury, rash, and discoloration, Neuro: Negative for headache, weakness, numbness, tingling, and seizure, 16:35 Back: Positive for pain with movement, 16:35 MS/extremity: Positive for injury or acute deformity, decreased range of motion, ecchymosis, of the right shoulder extending to R chest, 16:35 All other systems are negative, Exam: 16:35 Constitutional: This is a well developed, well nourished patient who is awake, alert, jh7 and in no acute distress. Head/Face: Normocephalic, atraumatic. ENT: Nares patent. No nasal discharge, no septal abnormalities noted. Tympanic membranes are normal and external auditory canals are clear. Oropharynx with no redness, swelling, or masses, exudates, or evidence of obstruction, uvula midline. Mucous membranes moist. Neck: Trachea midline, no thyromegaly or masses palpated, and no cervical lymphadenopathy. Supple, full range of motion without nuchal rigidity, or vertebral point tenderness. No Meningismus. Cardiovascular: Regular rate and rhythm with a normal S1 and S2. No gallops, murmurs, or rubs. Normal PMI, no JVD. No pulse deficits. Respiratory: Lungs have equal breath sounds bilaterally, clear to auscultation and percussion. No rales, rhonchi or wheezes noted. No increased work of breathing, no retractions or nasal flaring. Abdomen/GI: Soft, non-tender, with normal bowel sounds. No distension or tympany. No guarding or rebound. No evidence of tenderness throughout. Skin: Warm, dry with normal turgor. Normal color with no rashes, no lesions, and no evidence of cellulitis. Neuro: Awake and alert, GCS 15, oriented to person, place, time, and situation. Motor strength 5/5 in all extremities. Sensory grossly intact. Cerebellar exam normal. Normal gait. 16:35 Back: pain, that is mild, of the sacrum, ROM is normal, 16:35 Musculoskeletal/extremity: Extremities: noted in the right shoulder/clavicle: decreased ROM, ecchymosis, pain, tenderness, ROM: limited active range of motion, in the right shoulder, limited active range of motion due to pain, in the right shoulder, Circulation is intact in all extremities. Sensation intact. Vital Signs: 13:05 BP 174 / 57; Pulse 53; Resp 18 S; Temp 96.8(TE); Pulse Ox 97% on R/A; Weight 54.43 kg cm10 (R); Height 4 ft. 6 in. (R); Pain 0/10; 14:21 BP 156 / 82; Pulse 59; Resp 15; Pulse Ox 98% ; hb 13:05 Body Mass Index 28.93 (54.43 kg, 137.16 cm) cm10 13:05 Pain Scale: Adult cm10 MDM: 12:52 Patient medically screened. [facility] 14:23 Differential diagnosis: contusion, fracture, sprain, strain. Data reviewed: vital [facility] signs, nurses notes, radiologic studies, plain films. I considered the following discharge prescriptions or medication management in the emergency department Medications were administered in the Emergency Department. See MAR. Independent interpretation of the following test(s) in the Emergency Department X-Ray: My interpretation is R clavicle fracture. Care significantly affected by the following chronic conditions: Hypertension. Counseling: I had a detailed discussion with the patient and/or guardian regarding the historical points, exam findings, and any diagnostic results supporting the discharge/admit diagnosis, the need for outpatient follow up, a orthopedic surgeon, to return to the emergency department if symptoms worsen or persist or if there are any questions or concerns that arise at home. ED course: pt declined all pain meds. 08/12 13:15 Order name: CT Head C Spine; Complete Time: 14:21 [facility] 08/12 13:15 Order name: XRAY Chest (1 view); Complete Time: 14:21 [facility] 08/12 13:15 Order name: XRAY Shoulder RIGHT 2 view; Complete Time: 14:21 [facility] 08/12 13:15 Order name: XRAY Sacrum And Coccyx; Complete Time: 14:21 7 08/12 14:23 Order name: Sling; Complete Time: 14:36 jh Administered Medications: No medications were administered Disposition Summary: 08/12/23 14:23 Discharge Ordered Notes: Location: Home [facility] Problem: new [facility] Symptoms: are unchanged [facility] Condition: Stable [facility] Diagnosis - Displaced fracture of shaft of right clavicle [facility] Followup: [facility] - With: Jose Castañeda MD - When: 1 week - Reason: Recheck today's complaints Discharge Instructions: - Discharge Summary Sheet [facility] - Clavicle Fracture [facility] - How to Use a Sling [facility] Forms: - Medication Reconciliation Form [facility] - Thank You Letter [facility] - Patient Portal Instructions [facility] - Leadership Thank You Letter [facility] Addendum: 08/13/2023 20:18 Co-signature as Attending Physician, Blue Lucero MD. e c2 Signatures: Dispatcher [employer] EDDarcie Mc FNP MANAGER SALT jh7 Maura Dorman, RN RN cm10 Blue Lucero MD MD ec2
== END 2023-08-12 14:44 | disposition home or self-care (01) ==
LOC: ER 12:47
DX: S42.021A Displaced fracture of shaft of right clavicle, initial encounter for closed fracture (principal); Z88.0 Allergy status to penicillin; Z88.5 Allergy status to narcotic agent
CPT/HCPCS: 70450; 71045; 72125; 72220; 99282